=== PATIENT | male | born 2000 | race Caucasian/White ===

== ENCOUNTER 2018-03-29 16:35 | Emergency (ER) | payer BC ==
[2018-03-29] MEDS: KETOROLAC 60 MG INJ IM (17:12)
== END 2018-03-29 18:14 | disposition home or self-care (01) ==
LOC: FTE 16:35
DX: L60.0 Ingrowing nail (principal)
CPT/HCPCS: 96372; 99284-25

== ENCOUNTER 2019-01-23 15:02 | Emergency (ER) | payer BC ==
[2019-01-23] MEDS: IBUPROFEN 800 MG TAB PO (15:54)
== END 2019-01-23 17:25 | disposition home or self-care (01) ==
LOC: E/R 15:02
DX: S62.392A Other fracture of third metacarpal bone, right hand, initial encounter for closed fracture (principal); V49.40XA Driver injured in collision with unspecified motor vehicles in traffic accident, initial encounter
CPT/HCPCS: 29125; 73130-RT; 99283-25